=== PATIENT | male | born 1985 | race Hispanic/Latino ===

== ENCOUNTER 2016-10-30 19:48 | Emergency (ER) | payer OTHER ==
[2016-10-30 19:53] VITALS: BP 124/74; PULSE 62; RESP 16; O2SAT 99
[2016-10-30 20:21] LABS: BASOPHILS % (AUTO) 0.4 % (0-3); EOSINOPHILS % (AUTO) 2.1 % (0-5); MONOCYTES % (AUTO) 7.3 % (4-12); Mean Corpuscular Volume 90.8 fL (81-100); NEUTROPHILS % (AUTO) 45.3 % (40-74); Platelet Count 218 bil/L (150-400)
[2016-10-30 20:38] LABS: Magnesium 2.2 mg/dL (1.6-2.6)
--- NOTE | 2016-10-30 21:10 | ED.REPORT ---
HPI-Abd Pain M Under 40 Date of Service Oct 30, 2016 ED Provider: Shimon Martini MD The patient is a 31 yo male with no significant PMH who presents to the ED with his for 3-week history of postprandial emesis. He admits to nausea and vomiting every time he eats, regardless the food. No association with spicy or fatty food in particular. No issue with drinking. He also reports intermittent substernal chest pain that feels like "needle poking" for awhile. Chest pain does not radiate else where. He denies other symptoms, including diaphoresis, SOB, cough, hematemesis, abdominal pain, acid reflux, diarrhea, constipation, urinary symptoms, HAGEN, dizziness, vision change, fever, or chills. He has not taken any medication and no alleviating factor. He was seen at the today and was recommended to go to the ER for further workup. No similar symptoms prior. No drinking history. is the landman. Nursing Notes Stated Complaint: VOMITING Chief Complaint: Male Abdominal Pain Nursing Notes Reviewed: Yes Allergies: Coded Allergies: No Known Allergies (Unverified Allergy, Unknown, 10/30/16) Scheduled Pantoprazole DR (Pantoprazole DR) 40 Mg Tablet.dr 40 MG PO DAILY Scheduled PRN Ondansetron ODT (Zofran ODT) 4 Mg Tablet 4 MG PO Q4H PRN PRN For Nausea General Time Seen by MD: 21:09 Chief Complaint Nausea, Vomiting moderate Hx Obtained From: Patient, Spouse Arrived By: Walk-in Sudden in Onset?: Yes Onset Occurred: More than a week ago... (3 weeks) Context of Onset: Eating Symptom Duration: Since onset Progression since Onset: Constant Quality: Painful Radiation: : Does not radiate Severity: Current: Mild Associated with: Reports: Chest pain, Nausea, Vomiting, Denies: Chills, Constipation, Diarrhea, Dysuria, Fever, Hematemesis, Hematochezia, Hematuria, Shortness of breath, Urinary frequency, Urinary tract symptoms Pertinent Negative: Pt denies other symptoms Exacerbated by: Eating Pertinent Negative: Relieved by nothing Recent Healthcare: Recent doctor visit Similar Sx Previous: No Risk Factors Torsion Risk Stratification No risk factors CAD Risk Stratification No risk factors TAD Risk Stratification No risk factors Past Medical History Past Medical History None Past Surgical History None Smoking History Former Smoker (quit 4 years ago) Social History Alcohol Use: Denies alcohol use Drug Use: Denies drug use Other Social History: Good social support, Ambulatory Status Independent Review of Systems Basic Review of Systems Eyes: Vision NL, No discharge ENT: Hearing NL, No pain, No nasal congestion, No pharyngeal pain Neurologic: NL mental status, No weakness, No numbness Psychiatric: Normal thought content Constitutional: Denies: Chills, Fatigue, Fever Respiratory: Denies: Dyspnea on exertion, Hemoptysis, Non-productive cough, Shortness of breath, Wheezing Cardiovascular: Reports: Chest pain, Denies: Dyspnea on exertion, Edema, Palpitations GI: Reports: Nausea, Vomiting, Denies: Abdominal pain, Constipation, Diarrhea, Dysphagia, Hematemesis, Hematochezia Male: Denies Dysuria, Denies Flank pain, Denies Urinary frequency, Denies Urinary urgency Musculoskeletal: Denies: Back pain Complete sys rev & neg: except as marked. Physical Exam Initial Vital Signs Vital Signs (First) Date Time Temp Pulse Resp B/P Pulse Ox O2 Delivery O2 Flow Rate FiO2 10/30/16 19:53 36.8 62 16 124/74 99 Room Air Initial VS: Reviewed, Vital signs normal Head / Eyes: Atraumatic, Normocephalic, PERRL ENT: Mucous membranes moist, Conjunctiva normal, No scleral icterus Neck: Supple, Non-tender, Full range of motion Lymphatic: No lymphadenopathy Extremities: Vascular intact, Neuro intact, No swelling, No tenderness Skin: Warm, Dry, No cyanosis Neurologic: Alert, Oriented, Nonfocal Psychiatric: Mood/affect normal, Behavior normal, Normal thought content General/Constitutional: Awake, Alert, No acute distress, Well appearing, Well developed, Well hydrated, Cooperative, Not toxic appearing Respiratory / Chest: Atraumatic, Breath sounds NL, Breath sounds = bilat, No respiratory distress, No rales, No rhonchi, No wheezing Cardiovascular: Heart rate NL, Regular rhythm, Heart sounds NL, No murmurs Abdomen: Atraumatic, Soft, Non-tender, No guarding, No rebound, BS normoactive , No distention Neurologic: Oriented X3, Speech NL, No motor deficits, No sensory deficits Psychiatric: Affect NL, Mood NL Interpretation & Diagnostics Lab Results Interpretation Result Diagram: 10/30/16201010/30/162010 Test 10/30/16 20:11 10/30/16 20:52 White Blood Count 7.3th/mm3 (3.8-10.1) Red Blood Count 4.34mil/mm3 (4.40-5.80) Hemoglobin 13.9g/dL (13.8-17.2) Hematocrit 39.4% (41.0-50.0) Mean Corpuscular Volume 90.8fL (81-100) Mean Corpuscular Hemoglobin 32.0pg (27.0-35.0) Mean Corpuscular Hemoglobin Concent 35.3% (32.0-37.0) Red Cell Distribution Width 12.1% (12.3-15.4) Platelet Count 218bil/L (150-400) Neutrophils (%) (Auto) 45.3% (40-74) Lymphocytes (%) (Auto) 44.8% (14-46) Monocytes (%) (Auto) 7.3% (4-12) Eosinophils (%) (Auto) 2.1% (0-5) Basophils (%) (Auto) 0.4% (0-3) Sodium Level 137mEq/L (134-144) Potassium Level 3.9mEq/L (3.5-5.2) Chloride Level 100mEq/L (97-108) Carbon Dioxide Level 24mmol/L (18-29) Blood Urea Nitrogen 14mg/dL (6-20) Creatinine 0.58mg/dL (0.76-1.27) Estimat Glomerular Filtration Rate 174mL/min (>59) Glucose Level 96mg/dL (60-99) Calcium Level 9.1mg/dL (8.5-10.1) Magnesium Level 2.2mg/dL (1.6-2.6) Total Bilirubin 0.2mg/dL (0.0-1.2) Aspartate Amino Transf (AST/SGOT) 19U/L (0-50) Alanine Aminotransferase (ALT/SGPT) 17U/L (0-44) Alkaline Phosphatase 114U/L (25-150) Troponin T 0.010ug/L (0.0-0.011) Total Protein 7.6g/dL (6.4-8.4) Albumin 4.2g/dL (3.4-5.0) Lipase 43U/L (13-60) Hold Cohn Top Tube Received (Received) Urine Color Yellow (YELLOW) Urine Appearance Clear (CLEAR,HAZY) Urine pH 6.5 (5.0-8.0) Urine Specific [place] <1.005 (1.003-1.035) Urine Protein Negativemg/dL (NEG,TRACE) Urine Glucose (UA) Negativemg/dL (NEGATIVE) Urine Ketones Negativemg/dL (NEGATIVE) Urine Occult Blood Negative (NEGATIVE) Urine Nitrite Negative (NEGATIVE) Urine Bilirubin Negative (NEGATIVE) Urine Urobilinogen Normalmg/dL (NORMAL) Urine Leukocyte Esterase Negative (NEGATIVE) Urine RBC 0-2/hpf (0-2) Urine WBC 0-5/hpf (0-5) Urine Epithelial Cells Occasional/hpf (NONE-MOD) Urine Crystals None seen (NONE SEEN) Urine Bacteria None/hpf (NONE-FEW) Urine Hyaline Casts None/lpf (NONE) Urine Granular Casts None seen (NONE SEEN) Urine Waxy Casts None seen (NONE SEEN) Urine Red Blood Cell Casts None seen (NONE SEEN) Urine White Blood Cell Casts None seen (NONE SEEN) Urine Mucus None seen (None Seen) Urine Trichomonas None seen (NONE SEEN) Urine Yeast None (NONE SEEN) Urinalysis Comment None Urine Culture Reflexed Not indicated Lab values outside NL range: no clinical significance. Lab Results Interpretation: normal CBC, CMP, lipase, and UA. Negative Trop. ECG Interpretation ECG Interpretation: ST elevationn indicate probably early repolarization pattern Time: 23:05 Interpreted by: ED physician Normal ECG Interpretation: Normal sinus rhythm, No acute ischemic changes Abnormal Rate: Rate (48) Rhythm / Conduction: Bradycardia CT Abd / Pelvis Interpretation No CT findings to explain the patient's clinical symptoms Study type: Abdom CT oral contrast Interpretation / Wet Read by: Interpret - Radiologist Re-Eval/Medical Decision Med Decision/Clinical Course 31 yo male with no significant PMH who presents to the ED with his for 3-week history of constant postprandial emesis and intermittent substernal chest pain. He denies any other associated symptoms. His exam is completely benign and labs were not clinically significant for any pathology. EKG is normal as well. Possible causes could be iatrogenic, infectious, gastrointestinal disorders, neurological, or psychiatric conditions. Of all these causes, GI disorders, such as GERD or gastritis, seem to be the most likely. There is no sign and symptom [employer] cause such as increased intracranial pressure. However, in light of the intractable vomiting and possible weight loss ( thinks he looks a little thin), we are concerned of possible mass effect, and thus a CT abd and pelvis is ordered. The night radiologist read it as normal. There is no other finding that can explain his symptoms. However, patient remains stable with no vomiting noted in the ED and his CP is reportedly improved. At this point, patient is discharged with Protonix, Zofran, and close follow-up with his PCP. If his symptoms persist, he will likely need a referral to GI for further workup. Source of Hx: Family Re-Evaluation/Progress #1: Time of Eval: 22:45 )( Re-Eval Abdomen: Soft, Non-tender, No guarding Patient Status: Condition improved Re-Evaluation/Progress Note: Patient reports to feel better and can tolerate oral intake (crackers). He wishes to go home. Lab and EKG results discussed with the patient. However, because of his intractable posprandial emesis, will need to order CT abd to rule out obstruction/malignancy. Re-Evaluation/Progress #2: Time of Eval: 01:20 )( Re-Eval Abdomen: Non-tender Patient Status: Condition improved Re-Evaluation/Progress Note: CT result discussed with the patient and his . The radiologist read it as normal. However, the patient will need to follow up with his PCP for further workup as outpatient if the vomiting persists. They verbalized understanding. They have an appointment at the residency clinic on Friday. Differential Diagnosis: Positive: Cholangitis, Cholecystitis, Cholelithiasis, Dyspepsia, Esophagitis, GERD, Gastritis, Ischemic bowel, Malignancy, Mesenteric adenitis, Myocardial infarction, Peptic ulcer disease Gastroparesis Severity: Non life-threatening Counseled Regarding: Diagnosis, Lab results, Need for follow-up, When/why to return to ED Patient Discharge & Departure Shift Change Sign-Out Response to Therapy: Improved Primary Impression: GERD (gastroesophageal reflux disease) Esophagitis presence: esophagitis presence not specified Qualified Code: K21.9 - Gastro-esophageal reflux disease without esophagitis Additional Impressions: Vomiting Vomiting type: unspecified Vomiting Intractability: non-intractable Nausea presence: with nausea Qualified Code: R11.2 - Nausea with vomiting, unspecified Epigastric pain Disposition: Home Discharge Condition Condition: Stable Patient Instructions: Gastroesophageal Reflux Disease (ED) Additional Instructions: Your labs and EKG today are all normal. Your chest pain is likely due to GI issues, like heartburn or possible gastritis (inflammation of the stomach lining ), rather than cardiac origin. We did the abdominal and pelvic CT to rule out any obstruction or any abnormality that can explain the vomiting. However, it was read as normal by the radiologist. At this point, we will start you on a medication that can reduce the acid production. Please take the Pantoprazole daily as directed. Remember to take it on an empty stomach at least 30 minutes before meal once daily in the morning. You can also take Zofran as needed for the nausea. Avoid fatty, spicy food and reduce caffein (coffee, tea, soda, etc). Eat small meals at a time. Follow up with your PCP at the residency clinic as scheduled. You might need further workup as outpatient if the vomiting persists. Return to the ER if the chest pain worsens or if you develop severe abdominal pain, SOB, headache, fever, or chills. Referrals: [facility] Res[facility] Crit Care Except Billable Proc Services Performed: Patient management by me, Time spent at bedside, Reviewing test results, Discussing patient care Attending Statement As attending of record for this patient, I conducted an independent history and physical exam, and I concur with the documentation in the resident note above, and as amended. Patient was seen by the resident physician and managed by Dr. Shimon Martini. copies to: [facility] Res[facility] Bang Olsen DO Oct 30, 2016 21:10 Onelia Hernandez DO Oct 30, 2016 21:29 Shimon Martini MD Oct 31, 2016 05:36
[2016-10-30 21:16] LABS: APPEARANCE,URINE CLEAR (CLEAR,HAZY); COLOR,URINE YELLOW (YELLOW); OCCULT BLOOD,URINE NEGATIVE (NEGATIVE); PH,URINE 6.5 (5.0-8.0); UROBILINOGEN,URINE NORMAL (NORMAL)
[2016-10-30] MEDS ORDERED: LidocaineVisc 2%:Antacid 1:1 10 mL Syringe PO SCH (21:20)
[2016-10-30] MEDS ORDERED: Pantoprazole 40 mg ER24 Tablet PO ONE (21:50)
[2016-10-30] MEDS ORDERED: LidocaineVisc 2%:Antacid 1:1 10 mL Syringe PO ONE (22:05)
[2016-10-30] MEDS ORDERED: Iohexol 300 mg/mL 30 mL Inj PO ONE (23:05)
[2016-10-31] MEDS ORDERED: PANT40TA3 PO (01:37)
[2016-10-31] MEDS ORDERED: ONDA4TAB9 PO (01:37)
[2016-10-31 01:47] VITALS: BP 119/76; PULSE 70; RESP 16
--- NOTE | 2016-10-31 09:10 | DRSVH ---
PROCEDURE: CT ABDOMEN AND PELVIS WITH CONTRAST ([id number]) INDICATIONS: Intractable vomiting TECHNIQUE: After the administration of oral and intravenous contrast, 5 mm thick sections acquired from the diap hragms to the symphysis. 5 mm thick coronal and sagittal reformats were performed. For radiation do se reduction, the following was used: automated exposure control, adjustment of mA and/or kV accordi ng to patient size. COMPARISON: None. FINDINGS: Image quality: Excellent. ABDOMEN: Lung bases: Lung bases are clear. Heart size is normal. Solid organs: Liver and spleen are normal in size and enhancement. Gallbladder is within normal jones its. Biliary system is non-dilated. Pancreas enhances normally. No adrenal nodules. Kidneys are n ormal in size and enhancement, without hydronephrosis. Peritoneum and bowel: Stomach, small bowel, and colon loops are normal in caliber and wall thickness . No free fluid or air. The appendix is within normal limits. Nodes and vessels: No retroperitoneal or mesenteric adenopathy. Aorta and inferior vena cava are no rmal in caliber. Miscellaneous: No ventral hernias. PELVIS: Genitourinary: Bladder wall thickness is normal. Miscellaneous: No inguinal hernias or adenopathy. Bones: No suspicious bony lesions. No vertebral body compression fractures. IMPRESSION: 1. No acute disease process. 2. No free fluid or free air. 3. No dilated loops of bowel. Dictated by: Adelina Zaragoza MD, PhD on 10/31/2016 at 9:07 Approved by: Adelina Zaragoza MD, PhD on 10/31/2016 at 9:08
== END 2016-10-31 01:48 | disposition home or self-care (01) ==
LOC: SED 19:48
DX: K21.9 Gastro-esophageal reflux disease without esophagitis (principal); R11.2 Nausea with vomiting, unspecified; R10.13 Epigastric pain; Z87.891 Personal history of nicotine dependence
CPT/HCPCS: 36415; 74177; 80053; 81000; 83690; 83735; 84484; 85025; 93005; 99285; Q9967